=== PATIENT | female | born 1955 | race Native Hawaiian/Other Pacific Islander ===

== ENCOUNTER 2016-06-25 07:44 | Outpatient (CLI) | payer BC ==
[2016-06-25 08:11] LABS: PLATELET COUNT 335 K/uL (152-353)
[2016-06-25 08:38] LABS: POTASSIUM 3.8 mmol/L (3.6-5.2); SODIUM 136 mmol/L (136-145)
== END 2016-06-25 22:56 | disposition home or self-care (01) ==
LOC: LABW 07:44
PROVIDERS: Nurse Practitioner
DX: R53.83 Other fatigue (principal); E55.9 Vitamin D deficiency, unspecified; E78.00 Pure hypercholesterolemia, unspecified; I10 Essential (primary) hypertension
CPT/HCPCS: 36415; 80053; 80061; 82306; 84443; 85027

== ENCOUNTER 2019-01-31 22:56 | Outpatient (CLI) | payer OTHER, BC | END 2019-01-31 23:59 | disposition home or self-care (01) | LOC: RESP 22:56 | DX: R00.2 Palpitations (principal) | CPT/HCPCS: 93005 ==

== ENCOUNTER 2021-10-26 08:59 | Outpatient (CLI) | payer OTHER, BC | END 2021-10-26 18:54 | disposition home or self-care (01) | LOC: RAD 08:59 | PROVIDERS: ATTEND Internal Medicine | DX: Z13.820 Encounter for screening for osteoporosis (principal); N95.8 Other specified menopausal and perimenopausal disorders ==

== ENCOUNTER → 2022-03-12 | Outpatient (CLI) | payer OTHER, BC | LOC: RESP 09:30 | PROVIDERS: ATTEND Nurse Practitioner | DX: R00.2 Palpitations (principal); R94.31 Abnormal electrocardiogram [ECG] [EKG]; R07.89 Other chest pain ==